=== PATIENT | female | born 1990 | race Caucasian/White ===

== ENCOUNTER 2016-10-23 22:46 | Emergency (ER) | payer OTHER ==
[~2016-10-23] VITALS: Ht 160 cm; Wt 70.0 kg
[~2016-10-23 22:46] MED LIST: COMPLETENATE T1 EACH PO; TYLENOL EXTRA500 MG PO
[2016-10-23 23:06] VITALS: BP 154/100
[2016-10-24] MEDS ORDERED: NAPROXEN500 MG PO (00:06)
[2016-10-24] MEDS ORDERED: SKELAXIN800 MG PO (00:06)
== END 2016-10-24 02:04 | disposition home or self-care (01) ==
LOC: EME 22:46
DX: M54.5 Low back pain (principal); F17.200 Nicotine dependence, unspecified, uncomplicated
CPT/HCPCS: 99281; 99284; J8540

== ENCOUNTER 2016-11-21 09:00 | Day surgery (SDC) | payer OTHER ==
[~2016-11-21] VITALS: Ht 165.1 cm; Wt 70.2 kg
[~2016-11-21 09:00] MED LIST changes: +ADVIL,NUPRIN,M200 MG PO; +ALEVE220 MG PO; +BACKACHE EXTRA580 MG PO; +MOBIC7.5 MG PO; +NAPROXEN500 MG PO; +SKELAXIN800 MG PO; +VIVITROL380 MG/3.4 IM
[2016-11-21 09:38] VITALS: BP 133/71
[2016-11-21 10:25] LABS: TOTAL BILIRUBIN 0.3 mg/dL (0.0-1.0)
[2016-11-21 10:26] LABS: ALKALINE PHOSPHATASE 105 IU/L (3-129)
[2016-11-21 10:29] LABS: DIRECT BILIRUBIN 0.1 mg/dL (0.0-0.3)
[2016-11-21 10:34] LABS: HEMATOCRIT 40.7 % (36.0-46.0); MCH 28.6 PG (29.0-34.0); MCHC 33.2 G/DL (30.0-36.0); MCV 86.2 FL (83-99); MEAN PLAT.VOLUME 9.1 uM^3 (9.5-12.4); PLATELET COUNT 249 K/uL (156-360); RBC DIS.WIDTH-CV 15.9 % (11.8-14.6); RBC DIS.WIDTH-SD 49.9 % (39-53); RED BLOOD COUNT 4.72 M/uL (3.80-5.20); WHITE BLOOD COUNT 8.3 K/uL (4.1-10.2)
[2016-11-21 11:04] LABS: ERTH.SED.RATE 37 MM/HR (0-20)
[2016-11-21 11:16] LABS: INTERNAL CONTROL VALID? YES
[2016-11-21 11:33] LABS: C-REACTIVE PROTEIN 9.9 MG/L (0-10)
[2016-11-21 11:46] LABS: AMPHETAMINES QUANT VALUE 0 NG/ML; BARBITUATES QUANT VALUE 0 NG/ML; BENZODIAZEPINES QUANT VALUE 0 NG/ML; BENZODIAZEPINES, URINE SCREEN Negative (200 ng/mL); MARIJUANA QUANT VALUE 0 NG/ML; OPIATES QUANTITATIVE VALUE 0 NG/ML; PHENCYCLIDINE QUANT VALUE 0 NG/ML
[2016-11-21] MEDS ORDERED: KETOROLAC TROME10 MG PO (13:47)
[2016-11-21 14:22] VITALS: BP 114/58
[2016-11-21 15:45] VITALS: BP 101/68
== END 2016-11-21 15:53 | disposition home or self-care (01) ==
LOC: SDC
PROVIDERS: Neurological Surgery
DX: M46.45 Discitis, unspecified, thoracolumbar region (principal); F17.210 Nicotine dependence, cigarettes, uncomplicated; Z82.49 Family history of ischemic heart disease and other diseases of the circulatory system; Z80.1 Family history of malignant neoplasm of trachea, bronchus and lung
CPT/HCPCS: 80076; 80306 90; 84703; 85027; 85651; 86140; 87070; 87075; 87102; 87106; 87205; C1753; J0131; J0330; J1100; J1170; J1885; J2250; J2405; J3010; S0020